=== PATIENT | female | born 1970 | race Caucasian/White ===

== ENCOUNTER 2022-06-05 19:35 | Emergency (ER) | payer MEDICAID, SELFPAY ==
[2022-06-05 19:48] VITALS: BP 121/84; PULSE 90; RESP 20; TEMP 36.8; O2SAT 98
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
--- NOTE | 2022-06-05 20:33 | PC.NURSE ---
[facility]
== END 2022-06-05 21:38 | disposition home or self-care (01) ==
PROVIDERS: Emergency Provider Nurse Practitioner Family
DX: S00.83XA Contusion of other part of head, initial encounter (principal); Y04.2XXA Assault by strike against or bumped into by another person, initial encounter
CPT/HCPCS: 70450; 70486; 72125; 99284

== ENCOUNTER 2022-06-07 12:12 | Emergency (ER) | payer MEDICAID, SELFPAY ==
[2022-06-07] VITALS (14 sets, daily range): BP systolic 102–115; BP diastolic 68–83; PULSE 69–71; RESP 16; TEMP 36.8; O2SAT 95–100
--- NOTE | 2022-06-07 12:24 | W.ED.FEMALGU ---
HPI - Female Genitourinary General: Chief complaint: Urogenital-Female Stated complaint: URINATING BLOOD Time Seen by Provider: 06/07/22 12:15 Course Vital Signs: Vital signs: Vital Signs Temperature 98.3 F 06/07/22 12:13 Pulse Rate 71 06/07/22 12:13 Respiratory Rate 16 06/07/22 12:13 Pulse Oximetry 96 06/07/22 12:13 Oxygen Delivery Me thod 06/07/22 12:13 Discharge Plan Discharge Condition: Stable Coding Level of Care Code ED Seat Cover Installer for Nilo Marshall
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
[2022-06-07 12:42] LABS: Basophils % 0.4 %; Eosinophils % 0.4 %; Hematocrit 43.7 % (37.0-47.0); Hemoglobin 14.4 g/dL (11.5-15.3); Lymphocytes # 1.2 10^3/uL (0.8-4.8); Lymphocytes % 14.7 %; Mean Corpuscular Hemoglobin 33.1 pg (28.0-34.0); Mean Corpuscular Volume 100.5 fl (81-99); Mean Platelet Volume 10.5 fL (7.4-10.4); Monocytes # 0.8 10^3/uL (0.2-0.9); Monocytes % 9.3 %; Neutrophils # 6.23 10^3/uL (1.8-7.7); Neutrophils % 74.8 %; Nucleated Red Blood Cells % 0 %; Platelet Count 232 10^3/cmm (130-400); Red Blood Count 4.35 10^6/uL (4.1-5.3); Red Cell Distribution Width 12.5 % (12.1-15.1); White Blood Count 8.3 10^3/uL (4.0-10.0)
[2022-06-07] MEDS: iohexol 350 mg/mL 500 mL Btl (per mL) IV (12:45)
[2022-06-07 12:57] LABS: Alanine Aminotransferase 26 U/L (0-33); Albumin Level 4.4 g/dL (3.5-5.2); Alkaline Phosphatase 55 U/L (35-105); Anion Gap 15.7 (5-19); Aspartate Amino Transferase 42 U/L (0-32); Blood Urea Nitrogen 9 mg/dL (6-20); Calcium 8.7 mg/dL (8.5-10.5); Carbon Dioxide 23 mmol/L (22-29); Chloride 101 mmol/L (98-107); Globulin 2.5 g/dL (1.3-4.6); Glomerular Filtration Rate 75.6 mL/min (90-130); Glucose 91 mg/dL (65-115); Osmolality Calculated 280 mOsm/kg (285-295); Potassium 3.7 mmol/L (3.5-5.1); Sodium 136 mmol/L (136-145); Total Bilirubin 0.4 mg/dL (0.15-1.2); Total Protein 6.9 g/dL (6.6-8.7)
[2022-06-07 13:19] LABS: Add Urine Microscopic? NO; Charge for UA Resulting for Rev
[2022-06-07 13:25] LABS: Glucose Urine UA Norm (Normal); Protein Urine Neg (Negative); Specific Gravity, Urine 1.005 (1.005-1.030); Urine Appearance Clear (CLEAR); Urine Color Yellow (Yellow); pH Urine 7 (5-7)
[2022-06-07 13:26] LABS: Bilirubin Urine Neg (Negative); Blood Urine Neg (Negative); Ketones Urine 1+ (Negative); Leukocyte Esterase Urine Negative (Negative); Nitrate Urine Negative (Negative); Urobilinogen Urine Norm (Negative)
== END 2022-06-07 13:45 | disposition home or self-care (01) ==
PROVIDERS: Emergency Provider Physician Assistant
DX: K62.5 Hemorrhage of anus and rectum (principal); Y04.2XXA Assault by strike against or bumped into by another person, initial encounter
CPT/HCPCS: 36415; 74177; 80053; 81003; 85025; 99285; Q9967

== ENCOUNTER → 2022-08-18 10:28 | Outpatient (BNVA) | payer OTHER, MEDICAID, SELFPAY | PROVIDERS: Referring Provider Nurse Practitioner Family; Visit Provider Anesthesiology Pain Medicine | DX: M54.16 Radiculopathy, lumbar region (principal) | CPT/HCPCS: 72110 ==

== ENCOUNTER 2022-08-22 20:19 | Emergency (ER) | payer OTHER, MEDICAID, SELFPAY ==
--- NOTE | 2022-08-22 20:21 | ED_ITS ---
HPI - Nausea/Vomiting/Diarrhea General: Chief complaint: Nausea/Vomiting/Diarrhea Stated complaint: N/V Time Seen by Provider: 08/22/22 20:21 History of Present Illness: Ms Escamilla is a 52-year-old lady with history of tobaccoism and anxiety/psych presenting to the emergency department for abdominal symptoms and cough with shortness of breath. She reports onset of symptoms earlier today with 5 episodes of nonbilious and nonbloody emesis. Abdominal pain is burning and has been intermittent. Overall intensity symptoms moderate. Course has persisted. No other specific changes in health, exacerbating, or alleviating factors identified. Onset (ago): hour(s) Description of vomiting: watery and other (Mucous) Associated nausea: Yes Associated abdominal pain: Yes Location of pain: Epigastric Severity: moderate Exacerbating factors: eating Relieving factors: none Associated symtoms: Reports cough, nausea and other Review of Systems General: Reports: 10 or more systems reviewed and unremarkable except in HPI and below GI: Reports: nausea PFSH ED PFSH: Medical History No significant past medical history Surgical History No significant past surgical history Physical Exam Const: COMMON NORMALS: alert GENERAL APPEARANCE: cooperative and well de veloped HENMT: COMMON NORMALS: normocephalic and atraumatic HEAD & SCALP: normocephalic and atraumatic Eye: COMMON NORMALS: conjunctivae normal CONJUNCTIVA: Yes conjunctivae normal SCLERA: sclerae normal Neck/C-Spine: COMMON NORMALS: supple GENERAL: Yes trachea midline Resp: COMMON NORMALS: normal respiratory effort EFFORT & INSPECTION: Yes able to speak in complete sentences AUSCULTATION: rhonchi Cardio: COMMON NORMALS: regular rate and regular rhythm RATE: regular rate RHYTHM: regular rhythm GI: COMMON NORMALS: Soft to palpation PALPATION: Yes Soft to palpation, Yes Tenderness to palpation present (GI), No Guarding due to palpation present (GI) and No Rigid due to palpation Extremity: GENERAL: Yes normal exam except as noted and No edema Neuro: COMMON NORMALS: moves all extremities SENSORIUM/ORIENTATION: Yes alert and No Orientation impaired Psych: COMMON NORMALS: mental status grossly normal and Normal thought process present THOUGHT PROCESS: Normal thought process present Course Vital Signs: Vital signs: Vital Signs Temperature 99.0 F 08/22/22 20:23 Pulse Rate 87 08/22/22 23:40 Respiratory Rate 16 08/22/22 23:40 Blood Pressure 98/65 08/22/22 23:40 Pulse Oximetry 95 08/22/22 23:40 Oxygen Delivery Me thod Room Air 08/22/22 23:02 MDM - Nausea/Vomiting/Diarrhea Medical Decision Making 52-year-old lady presenting with nausea vomiting as well as abdominal pain which is burning and coughing. Exam as above. She is nontoxic. Minimal abdominal tenderness with no evidence of acute surgical abdomen. Labs with no leukocytosis, normal hemoglobin and platelet count. Metabolic panel without acute derangement. No UTI. Viral studies negative. Chest x-ray with no lobar consolidation or pneumothorax. Patient improved with analgesia, antiemetic, fluids, treatment for exacerbation of underlying lung disease. She is comfortable foregoing CT imaging of the abdomen and I do not feel that she needs CT imaging at this time given improvement in physical exam/clinical history The results of ED evaluation were discussed with the patient including prescriptions and/or symptomatic cares (if applicable) including appropriate and responsible use, followup plan, and return precautions. The patient verbalized understanding and felt safe for discharge. Medical Records I reviewed the patient's medical records. Lab Data I reviewed the patient's lab results. 08/22/22 21:36 08/22/22 21:36 Radiology Impressions Chest X-Ray 08/22/22 20:38 IMPRESSION: No acute findings. Laboratory Results WBC 10.4 10^3/uL (4.0-10.0) H 08/22/22 21:36 RBC 4.15 10^6/uL (4.1-5.3) 08/22/22 21:36 Hgb 13.3 g/dL (11.5-15.3) 08/22/22 21:36 Hct 41.2 % (37.0-47.0) 08/22/22 21:36 MCV 99.3 fl (81-99) H 08/22/22 21:36 MCH 32.0 pg (28.0-34.0) 08/22/22 21:36 MCHC 32.3 g/dL (30.0-36.0) 08/22/22 21:36 RDW 11.9 % (12.1-15.1) L 08/22/22 21:36 Plt Count 238 10^3/cmm (130-400) 08/22/22 21:36 MPV 10.6 fL (7.4-10.4) H 08/22/22 21:36 Neut % (Auto) 90.5 % 08/22/22 21:36 Lymph % (Auto) 4.9 % 08/22/22 21:36 [place] % (Auto) 3.9 % 08/22/22 21:36 Eos % (Auto) 0.3 % 08/22/22 21:36 Baso % (Auto) 0.2 % 08/22/22 21:36 Neut # (Auto) 9.43 10^3/uL (1.8-7.7) H 08/22/22 21:36 Lymph # (Auto) 0.5 10^3/uL (0.8-4.8) L 08/22/22 21:36 [place] # (Auto) 0.4 10^3/uL (0.2-0.9) 08/22/22 21:36 Eos # (Auto) 0.0 10^3/uL (0.0-0.8) 08/22/22 21:36 Baso # (Auto) 0.0 10^3/uL (0.0-0.1) 08/22/22 21:36 Nucleated RBC % (auto) 0 % 08/22/22 21:36 Nucleated RBCs # 0.0 /100WBC 08/22/22 21:36 Sodium 140 mmol/L (136-145) 08/22/22 21:36 Potassium 3.6 mmol/L (3.5-5.1) 08/22/22 21:36 Chloride 105 mmol/L (98-107) 08/22/22 21:36 Carbon Dioxide 23 mmol/L (22-29) 08/22/22 21:36 Anion Gap 15.6 (5-19) 08/22/22 21:36 BUN 17 mg/dL (6-20) 08/22/22 21:36 Creatinine 0.7 mg/dL (0.5-0.9) 08/22/22 21:36 GFR Calculation 88.2 mL/min (90-130) L 08/22/22 21:36 Glucose 97 mg/dL (65-115) 08/22/22 21:36 Calculated Osmolality 291 mOsm/kg (285-295) 08/22/22 21:36 Calcium 8.2 mg/dL (8.5-10.5) L 08/22/22 21:36 Total Bilirubin 0.2 mg/dL (0.15-1.2) 08/22/22 21:36 AST 18 U/L (0-32) 08/22/22 21:36 ALT 15 U/L (0-33) 08/22/22 21:36 Alkaline Phosphatase 40 U/L (35-105) 08/22/22 21:36 Total Protein 6.2 g/dL (6.6-8.7) L 08/22/22 21:36 Albumin 3.8 g/dL (3.5-5.2) 08/22/22 21:36 Globulin 2.4 g/dL (1.3-4.6) 08/22/22 21:36 Lipase 24 U/L (13-60) 08/22/22 21:36 Urine Color Yellow (Yellow) 08/22/22 22:30 Urine Appearance Clear (CLEAR) 08/22/22 22:30 Urine pH 5 (5-7) 08/22/22 22:30 Ur Specific [place] 1.020 (1.005-1.030) 08/22/22 22:30 Urine Protein Neg (Negative) 08/22/22 22:30 Urine Glucose (UA) Norm (Normal) 08/22/22 22:30 Urine Ketones Negative (Negative) 08/22/22 22:30 Urine Blood Neg (Negative) 08/22/22 22:30 Urine Nitrate Negative (Negative) 08/22/22 22:30 Urine Bilirubin Neg (Negative) 08/22/22 22:30 Urine Urobilinogen Norm mg/dL (Negative) 08/22/22 22:30 Ur Leukocyte Esterase Negative (Negative) 08/22/22 22:30 Influenza Type A Ag negative (Negative) 08/22/22 22:09 Influenza Type B Ag negative (Negative) 08/22/22 22:09 SARS-CoV-2 Ag (Rapid) negative (Negative) 08/22/22 22:09 Discharge Plan Discharge Patient Disposition: Home Clinical Impression: Abdominal pain, Nausea, vomiting, and diarrhea, Acute exacerbation of COPD with asthma Condition: Stable Prescriptions: New Pepcid 40 mg tablet 40 mg PO BID 5 Days Qty: 10 0RF prednisone 50 mg tablet 50 mg PO DAILY 5 Days Qty: 5 0RF albuterol sulfate 90 mcg/actuation HFA aerosol inhaler 2 inh inhalation Q4H PRN (Reason: shortness of breath or wheezing) Qty: 8.5 0RF ondansetron 4 mg tablet,disintegrating 4 mg PO Q8H PRN (Reason: nausea and vomiting) Qty: 15 0RF amoxicillin-pot clavulanate 875-125 mg tablet 1 tab PO BID Qty: 20 0RF No Action gabapentin 300 mg capsule 300 mg PO DAILY sertraline 50 mg tablet 50 mg PO DAILY neomycin-polymyxin B-dexameth 3.5mg/mL-10,000 unit/mL-0.1 % drops,suspension 1 drp ophthalmic (eye) Q12H escitalopram oxalate 10 mg tablet 10 mg PO DAILY buspirone 10 mg tablet 10 mg PO TID meloxicam 15 mg tablet,disintegrating PO albuterol sulfate 90 mcg/actuation HFA aerosol inhaler 2 puff inhalation Q6H PRN baclofen 10 mg tablet 10 mg PO BID PRN (Reason: spasm) Qty: 60 0RF Discharge Orders: Discharge ED (Routine); Ordered 08/22/22 Ordered By: Jay Fontenot Discharge Diet: Advance as tolerated and Clear Liquid Discharge Activity: Increase activity as tolerated Patient Instructions: Gastroenteritis (ED), COPD (Chronic Obstructive Pulmonary Disease) (ED), Abdominal Pain (ED), Opioid Safety Activity Restrictions/Additional Instructions: Thank you for visiting the emergency department. You were seen and evaluated for cough, congestion, nausea vomiting and diarrhea. The exact cause your symptoms is unclear though likely multifactorial including a gastroenteritis and exacerbation of underlying lung disease which is secondary to smoking. I will prescribe steroids and antibiotics. Please also use your albuterol metered-dose inhaler 2 puffs every 4 hours for 24 hours followed by 2 puffs every 6 hours for 24 hours followed by 2 puffs every 8 hours for 24 hours and then return to the normal schedule. You may use [id number] medications such as acetaminophen and ibuprofen for pain however please do not exceed the daily recommended dosage as listed on the packaging and please keep in mind that many namebrand medications contain the s dayan active ingredients. Please avoid these medications if previously instructed to do so by another physician due to other underlying medical condition. Please make sure that you are staying hydrated. Return to the emergency department for uncontrolled symptoms or anything else that you are concerned about and feel needs emergency department evaluation. Coding Level of Care Code ED System Controller for Nilo Marshall
[2022-08-22 20:23] VITALS: BP 113/75; PULSE 80; RESP 16; TEMP 37.2; O2SAT 94; BMI 24.1
--- NOTE | 2022-08-22 20:38 | XRR_ITS ---
PROCEDURE INFORMATION: Exam: XR Chest Exam date and time: 08/22/2022 8:47 PM Age: 52 years old Clinical indication: Cough; Additional info: SOB, cough TECHNIQUE: Imaging protocol: Radiologic exam of the chest. Views: 1 view. COMPARISON: CR XR chest 1V [id number] 11/02/2015 2:51 AM FINDINGS: Lungs: Unremarkable. No consolidation. Pleural spaces: Unremarkable. No pleural effusion. No pneumothorax. Heart/Mediastinum: Unremarkable. No cardiomegaly. Bones/joints: Unremarkable. XR/XR chest 1V portable [id number] IMPRESSION: No acute findings.
[2022-08-22] MEDS: ondansetron 2 mg/ML SDV 2 mL 4 MG IVP (21:24)
[2022-08-22] MEDS: sodium chloride 0.9% 1,000 ML 999 ML IV (21:24)
[2022-08-22] MEDS: fentaNYL 50 mcg/mL INJ 2mL IVP (21:24)
[2022-08-22 21:47] LABS: Basophils % 0.2 %; Eosinophils % 0.3 %; Hematocrit 41.2 % (37.0-47.0); Hemoglobin 13.3 g/dL (11.5-15.3); Lymphocytes # 0.5 10^3/uL (0.8-4.8); Lymphocytes % 4.9 %; Mean Corpuscular HGB Conc 32.3 g/dL (30.0-36.0); Mean Corpuscular Volume 99.3 fl (81-99); Mean Platelet Volume 10.6 fL (7.4-10.4); Monocytes # 0.4 10^3/uL (0.2-0.9); Monocytes % 3.9 %; Neutrophils # 9.43 10^3/uL (1.8-7.7); Neutrophils % 90.5 %; Nucleated Red Blood Cells % 0 %; Platelet Count 238 10^3/cmm (130-400); Red Blood Count 4.15 10^6/uL (4.1-5.3); Red Cell Distribution Width 11.9 % (12.1-15.1); White Blood Count 10.4 10^3/uL (4.0-10.0)
[2022-08-22 22:07] VITALS: PULSE 81; O2SAT 95
[2022-08-22 22:11] LABS: Alanine Aminotransferase 15 U/L (0-33); Albumin Level 3.8 g/dL (3.5-5.2); Alkaline Phosphatase 40 U/L (35-105); Anion Gap 15.6 (5-19); Aspartate Amino Transferase 18 U/L (0-32); Blood Urea Nitrogen 17 mg/dL (6-20); Calcium 8.2 mg/dL (8.5-10.5); Carbon Dioxide 23 mmol/L (22-29); Chloride 105 mmol/L (98-107); Globulin 2.4 g/dL (1.3-4.6); Glomerular Filtration Rate 88.2 mL/min (90-130); Glucose 97 mg/dL (65-115); Lipase 24 U/L (13-60); Osmolality Calculated 291 mOsm/kg (285-295); Potassium 3.6 mmol/L (3.5-5.1); Sodium 140 mmol/L (136-145); Total Bilirubin 0.2 mg/dL (0.15-1.2); Total Protein 6.2 g/dL (6.6-8.7)
[2022-08-22 22:36] VITALS: BP 100/62; PULSE 85; RESP 18; O2SAT 96
[2022-08-22 22:37] VITALS: O2SAT 95
[2022-08-22 22:40] LABS: SARS Covid-2 Antigen negative (Negative)
[2022-08-22 22:41] LABS: Influenza A by IFA negative (Negative); Influenza B by IFA negative (Negative)
[2022-08-22 22:41] LABS: Add Urine Microscopic? NO; Charge for UA Resulting for Rev
[2022-08-22 22:50] LABS: Bilirubin Urine Neg (Negative); Blood Urine Neg (Negative); Glucose Urine UA Norm (Normal); Ketones Urine Negative (Negative); Leukocyte Esterase Urine Negative (Negative); Nitrate Urine Negative (Negative); Protein Urine Neg (Negative); Urine Appearance Clear (CLEAR); Urine Color Yellow (Yellow); Urobilinogen Urine Norm (Negative); pH Urine 5 (5-7)
[2022-08-22 23:02] VITALS: PULSE 77; RESP 16; O2SAT 95
[2022-08-22] MEDS: ipratropium-albuterol 3 mL Neb INHALATION (23:02)
[2022-08-22] MEDS: amoxicillin-clav 875-125 mg Tablet 1 TAB PO (23:31)
[2022-08-22 23:40] VITALS: BP 98/65; PULSE 87; RESP 16; O2SAT 95
== END 2022-08-22 23:41 | disposition home or self-care (01) ==
PROVIDERS: Emergency Provider Emergency Medicine; PCP Nurse Practitioner Family
DX: J44.1 Chronic obstructive pulmonary disease with (acute) exacerbation (principal); R11.2 Nausea with vomiting, unspecified; R10.9 Unspecified abdominal pain; R19.7 Diarrhea, unspecified; Z20.822 Contact with and (suspected) exposure to COVID-19
CPT/HCPCS: 71045; 80053; 81003; 83690; 85025; 87426; 87804; 94640; 96361; 96374; 96375; 99284; J2405; J2930; J3010; J7030

== ENCOUNTER 2023-01-16 13:11 | Emergency (ER) | payer OTHER, MEDICAID, SELFPAY ==
[2023-01-16 13:14] VITALS: BP 148/96; PULSE 66; RESP 18; TEMP 37.1; O2SAT 98; BMI 26.1
--- NOTE | 2023-01-16 13:20 | ED_ITS ---
HPI - Headache General: Chief Complaint: Headache Stated Complaint: HEADACHE Time Seen by Provider: 01/16/23 13:15 Source: patient Mode of arrival: EMS Limitations: no limitations History of Present Illness: Patient is a 52-year-old female presents to ED today with a complaint of a headache that started yesterday. She states her headache is located to her posterior scalp and radiates upward. She states she does have a history of migraine headaches but has not had a headache in several years. She states her headache today feels identical to previous migraines. She is not having any neck pain or neck stiffness. No fevers. She is not having any visual changes. She does admit to having some nausea with associated vomiting. No abdominal pain or changes in bowel movements. No respiratory complaints. She arrives via EMS with completely normal vital signs. She was given Phenergan in route and at time of my initial examination does not complain of nausea and vomiting. She states headache seems to be worse with light. It is not affected by position. Denies drug use. MD elicited complaint: headache and migraine Pertinent past history: migraines Onset (ago): day(s) Onset description: on awakening Location: occipital Severity: severe Pain scale (0-10): 7 Exacerbating factors: light Relieving factors: nothing Context: occurred at rest Associated symptoms: Reports no associated symptoms, nausea and vomiting; Deny chest pain, confusion, fever(s), lightheadedness, malaise, pre-syncope, rash or syncope Treatments prior to arrival: none Review of Systems Const: Denies: fever(s), chills, body aches, fatigue or malaise Eyes: Denies: change in vision, blurry vision, photophobia, floaters or seeing flashes ENMT: Denies: ear or mastoid pain, nasal congestion or sinus pain Card: Denies: chest pain, palpitations, lightheadedness, syncope or pre- syncope GI: Reports: nausea and vomiting; Denies: abdominal pain, diarrhea or change in bowel habits Musc: Denies: neck pain, back pain, extremity pain or joint pain Skin/Breast: Denies: rash Neuro: Reports: headache(s); Denies: numbness in extremities, weakness in extremities, sensory changes, lack of coordination, difficulty walking, frequent falls, dizziness, vertigo, confusion, behavioral changes, Slurred speech present, difficulty communicating thoughts or seizure-like activity [facility] ED PFSH: Medical History No significant past medical history Surgical History No significant past surgical history Physical Exam 2 Const: COMMON NORMALS: no acute distress, patient oriented x3, no limitations and alert GENERAL APPEARANCE: cooperative and appears older than stated age ORIENTATION/CONSCIOUSNESS: Yes awake, Yes oriented to person, Yes oriented to place and Yes oriented to time HENMT: COMMON NORMALS: normocephalic, atraumatic and TM's normal bilaterally HEAD & SCALP: normal to inspection, normocephalic and atraumatic FACE & SINUS: normal facial exam TYMPANIC MEMBRANE: TM's normal bilaterally Eye: COMMON NORMALS: Equal, round and reactive pupils present and EOMs intact bilaterally GENERAL EYE: appearance normal, both eyes and all related structures and normal light reflex PUPIL: Yes Equal, round and reactive pupils present DIRECT OPHTHALMOSCOPY: Yes normal light reflex Neck/C-Spine: COMMON NORMALS: full ROM, no lymphadenopathy, supple, no meningeal signs and no JVD GENERAL: Yes normal visual inspection, No anterior neck swelling and No submandibular swelling Resp: COMMON NORMALS: normal respiratory effort and clear to auscultation bilaterally AUSCULTATION: clear to auscultation bilaterally Cardio: COMMON NORMALS: no JVD, regular rate and regular rhythm RATE: regular rate RHYTHM: regular rhythm Extremity: COMMON NORMALS: normal to inspection GENERAL: Yes normal exam except as noted Neuro: IMELDA COMA SCALE: document GCS findings [place] coma scale eye opening: Spontaneous [place] coma scale verbal response: Orientated Imelda coma scale motor response: Obey commands [place] coma scale total score: 15 COMMON NORMALS: patient oriented x3, CN's II-XII intact bilaterally, moves all ext remities, no focal motor deficits and no sensory deficits noted SENSORIUM/ORIENTATION: Yes alert, Yes oriented to person, Yes oriented to place and Yes oriented to time MENINGEAL SIGNS: Yes no meningeal signs Skin: COMMON NORMALS: no rashes or lesions noted GENERAL SKIN EXAM: no rashes or lesions noted Course Vital Signs: Vital signs: Vital Signs Temperature 98.8 F 01/16/23 13:14 Pulse Rate 71 01/16/23 13:49 Respiratory Rate 16 01/16/23 13:49 Blood Pressure 148/110 01/16/23 13:49 Pulse Oximetry 97 01/16/23 13:49 Oxygen Delivery Me thod Room Air 01/16/23 13:49 MDM - Headache Medical Decision Making MAYBERRY down from a 11/14 to a 07/15. At this time patient is stable for DC with return precautions. I would like her to follow up with her PCP this week for re- evaluation. Discharge Plan Discharge Patient Disposition: Home Clinical Impression: Migraine Qualifiers: Migraine type: without aura Status migrainosus presence: without status migrainosus Intractability: not intractable Qualified Code(s): G43.009 - Migraine without aura, not intractable, without status migrainosus Condition: Stable Prescriptions: New ondansetron 4 mg tablet,disintegrating 4 mg PO Q8H PRN (Reason: nausea and vomiting) Qty: 14 0RF No Action gabapentin 300 mg capsule 300 mg PO DAILY sertraline 50 mg tablet 50 mg PO DAILY neomycin-polymyxin B-dexameth 3.5mg/mL-10,000 unit/mL-0.1 % drops,suspension 1 drp ophthalmic (eye) Q12H escitalopram oxalate 10 mg tablet 10 mg PO DAILY buspirone 10 mg tablet 10 mg PO TID meloxicam 15 mg tablet,disintegrating PO albuterol sulfate 90 mcg/actuation HFA aerosol inhaler 2 puff inhalation Q6H PRN baclofen 10 mg tablet 10 mg PO BID PRN (Reason: spasm) Qty: 60 0RF albuterol sulfate 90 mcg/actuation HFA aerosol inhaler 2 inh inhalation Q4H PRN (Reason: shortness of breath or wheezing) Qty: 8.5 0RF ondansetron 4 mg tablet,disintegrating 4 mg PO Q8H PRN (Reason: nausea and vomiting) Qty: 15 0RF amoxicillin-pot clavulanate 875-125 mg tablet 1 tab PO BID Qty: 20 0RF Discharge Orders: Discharge ED (Routine); Ordered 01/16/23 Ordered By: Sonia Ontiveros Referrals: Shantal Barrow FNP [Primary Care Provider] - Patient Instructions: Headache - Migraine (Adult), Migraine Headache (ED), Acute Headache (DC) Activity Restrictions/Additional Instructions: As we discussed please follow-up with your primary care provider this week for further evaluation/treatment. You may return to the emergency department for return of severe headache, neck pain/stiffness, fevers, visual changes or visual loss, facial droop, slurred speech, trouble walking, any other concerns you may have. I hope you begin to feel better soon. Coding Level of Care Code ED Check Scaler for Nilo Marshall
[2023-01-16] MEDS: ketorolac 30 mg/mL INJ IVP (13:37)
[2023-01-16] MEDS: diphenhydrAMINE 50 mg/mL SDV 1mL IVP (13:39)
[2023-01-16] MEDS: dexamethasone 10 mg/mL INJ 6 MG IV (13:41)
[2023-01-16 13:45] VITALS: BP 148/110; PULSE 81; RESP 16; O2SAT 97
[2023-01-16 13:49] VITALS: BP 148/110; PULSE 71; RESP 16; O2SAT 97
[2023-01-16 14:58] VITALS: BP 119/76; PULSE 67; RESP 16; O2SAT 97
[2023-01-16 15:00] VITALS: BP 119/76; PULSE 65; RESP 16; O2SAT 95
== END 2023-01-16 14:50 | disposition home or self-care (01) ==
PROVIDERS: Emergency Provider Physician Assistant; PCP Nurse Practitioner Family
DX: G43.009 Migraine without aura, not intractable, without status migrainosus (principal)
CPT/HCPCS: 96374; 96375; 99284; J1100; J1200; J1885

== ENCOUNTER 2023-05-05 11:38 | Emergency (ER) | payer OTHER, MEDICAID, SELFPAY ==
[2023-05-05 11:38] VITALS: BP 92/70; PULSE 91; RESP 18; TEMP 36.4; O2SAT 94; BMI 25.2
--- NOTE | 2023-05-05 11:40 | W.ED.ABDPA2 ---
HPI - Abdominal Pain General: Stated Complaint: abd pain Time Seen by Provider: 05/05/23 11:39 PFSH ED PFSH: Medical History No significant past medical history Surgical History No significant past surgical history Discharge Plan Discharge Condition: Stable Prescriptions: No Action gabapentin 300 mg capsule 300 mg PO DAILY sertraline 50 mg tablet 50 mg PO DAILY neomycin-polymyxin B-dexameth 3.5mg/mL-10,000 unit/mL-0.1 % drops,suspension 1 drp ophthalmic (eye) Q12H escitalopram oxalate 10 mg tablet 10 mg PO DAILY buspirone 10 mg tablet 10 mg PO TID meloxicam 15 mg tablet,disintegrating PO albuterol sulfate 90 mcg/actuation HFA aerosol inhaler 2 puff inhalation Q6H PRN topiramate 50 mg tablet 50 mg PO BID 30 Days Qty: 60 0RF baclofen 10 mg tablet 10 mg PO BID PRN (Reason: spasm) Qty: 60 0RF albuterol sulfate 90 mcg/actuation HFA aerosol inhaler 2 inh inhalation Q4H PRN (Reason: shortness of breath or wheezing) Qty: 8.5 0RF ondansetron 4 mg tablet,disintegrating 4 mg PO Q8H PRN (Reason: nausea and vomiting) Qty: 15 0RF amoxicillin-pot clavulanate 875-125 mg tablet 1 tab PO BID Qty: 20 0RF ondansetron 4 mg tablet,disintegrating 4 mg PO Q8H PRN (Reason: nausea and vomiting) Qty: 14 0RF Referrals: Shantal Barrow FNP [Primary Care Provider] - Coding Level of Care Code ED Production Team Manager for Nilo Marshall
--- NOTE | 2023-05-05 11:45 | ED_ITS ---
HPI - Nausea/Vomiting/Diarrhea 2 General: Chief complaint: Nausea/Vomiting/Diarrhea Stated complaint: abd pain Time Seen by Provider: 05/05/23 11:39 Source: patient Mode of arrival: ambulatory Limitations: no limitations History of Present Illness: Patient is a 53-year-old female who presents to ED today with a complaint of nausea, vomiting, and diarrhea over the past 48 hours. She states she lives at a homeless detention and some of the other residents have been ill with similar symptoms. She is having intermittent abdominal cramping. She reports approximately 8-9 episodes of nonbloody emesis over the past 24 hours. She reports approximately 3-4 episodes of nonbloody, non-mucousy diarrhea. She is not running fevers. MD elicited complaint: nausea, vomiting, diarrhea and abdominal pain Onset (ago): day(s) Description of diarrhea: watery Associated nausea: Yes Associated abdominal pain: Yes Location of pain: Diffuse Radiation: diffuse Pain consistency: intermittent Severity: mild Quality: cramping Exacerbating factors: eating Relieving factors: none Associated symtoms: Reports nausea; Denies chest pain, dizziness, dysuria, fatigue, headache(s) or malaise Review of Systems 2 Const: Denies: fever(s), chills, body aches, fatigue or malaise Card: Denies: chest pain Resp: Denies: dyspnea GI: Reports: abdominal pain, nausea and vomiting; Denies: hematemesis, diarrhea, rectal pain, hematochezia, melena or mucus in stool : Denies: flank pain, difficulty voiding, dysuria, urinary frequency, urinary urgency or urinary hesitancy Musc: Denies: neck pain, back pain, extremity pain or joint pain Skin/Breast: Denies: rash Neuro: Denies: headache(s), numbness in extremities, weakness in extremities, sensory changes or dizziness PFSH ED 2 PFSH: Medical History No significant past medical history Surgical History No significant past surgical history Physical Exam 2 Const: COMMON NORMALS: no acute distress, average body habitus, patient oriented x3, no limitations and alert GENERAL APPEARANCE: cooperative Eye: COMMON NORMALS: no scleral icterus Resp: COMMON NORMALS: normal respiratory effort and clear to auscultation bilaterally AUSCULTATION: clear to auscultation bilaterally Cardio: COMMON NORMALS: regular rate and regular rhythm RATE: regular rate RHYTHM: regular rhythm GI: COMMON NORMALS: Normal to inspection, nondistended, normoactive bowel sounds present, Soft to palpation, No hepatosplenomegaly present and no masses INSPECTION: Yes normal to inspection AUSCULTATION: Yes normoactive bowel sounds PALPATION: Yes Soft to palpation, Yes Tenderness to palpation present (GI) (mild diffusely-non surgical abdomen ), No Guarding due to palpation present (GI), No Rigid due to palpation and Yes No hepatosplenomegaly present : COMMON NORMALS: Yes no CVA tenderness BLADDER/KIDNEY EXAM: Yes no CVA tenderness Back/Pelvis: COMMON NORMALS: no CVA tenderness Neuro: COMMON NORMALS: patient oriented x3 SENSORIUM/ORIENTATION: Yes alert Course 2 Vital Signs: Vital signs: Vital Signs Temperature 97.5 F L 05/05/23 11:38 Pulse Rate 82 05/05/23 13:13 Respiratory Rate 18 05/05/23 13:13 Blood Pressure 125/95 05/05/23 13:13 Pulse Oximetry 98 05/05/23 13:13 Oxygen Delivery Me thod Room Air 05/05/23 13:13 MDM - Nausea/Vomiting/Diarrhea Medical Decision Making Patient here for nausea, vomiting, diarrhea, and abdominal cramping over the past 2 days. She is residing at a homeless detention and several other residents have been sick with similar illness. She arrives in no acute distress. Blood pressure was soft upon arrival but during re-examination she is normotensive. Patient has not had any episodes of vomiting or diarrhea while here. Her blood work overall is fairly unremarkable. Mild hypokalemia at 3.2. She was given oral supplementation for this. Patient will be sent home with antiemetics. She was given a liter of fluids here. During discharge instructions she complained of some bodyaches that were not present at the beginning of her stay. Will go ahead and collect influenza swab. She is afebrile. Return to ED precautions given. Lab Data 05/05/23 11:50 05/05/23 11:50 Laboratory Results WBC 7.15 10^3/uL (3.29-11.43) 05/05/23 11:50 RBC 4.61 10^6/uL (3.85-5.65) 05/05/23 11:50 Hgb 14.90 g/dL (11.27-16.99) 05/05/23 11:50 Hct 46.2 % (36-47) 05/05/23 11:50 MCV 100.2 fl (85-98) H 05/05/23 11:50 MCH 32.3 pg (27-33) 05/05/23 11:50 MCHC 32.3 g/dL (30-55) 05/05/23 11:50 RDW 12.7 % (12.1-15.1) 05/05/23 11:50 Plt Count 206 10^3/cmm (157-399) 05/05/23 11:50 MPV 10.0 fL (7.4-10.4) 05/05/23 11:50 Neut % (Auto) 77.1 % 05/05/23 11:50 Lymph % (Auto) 11.5 % 05/05/23 11:50 Ector % (Auto) 10.6 % 05/05/23 11:50 Eos % (Auto) 0.1 % 05/05/23 11:50 Baso % (Auto) 0.3 % 05/05/23 11:50 Neut # (Auto) 5.51 10^3/uL (1.8-7.7) 05/05/23 11:50 Lymph # (Auto) 0.8 10^3/uL (0.8-4.8) 05/05/23 11:50 Ector # (Auto) 0.8 10^3/uL (0.2-0.9) 05/05/23 11:50 Eos # (Auto) 0.0 10^3/uL (0.0-0.8) 05/05/23 11:50 Baso # (Auto) 0.0 10^3/uL (0.0-0.1) 05/05/23 11:50 Nucleated RBC % (auto) 0 % 05/05/23 11:50 Nucleated RBCs # 0.0 /100WBC 05/05/23 11:50 Sodium 137 mmol/L (136-145) 05/05/23 11:50 Potassium 3.2 mmol/L (3.5-5.1) L 05/05/23 11:50 Chloride 102 mmol/L (98-107) 05/05/23 11:50 Carbon Dioxide 24 mmol/L (22-29) 05/05/23 11:50 Anion Gap 14.2 (5-19) 05/05/23 11:50 BUN 18 mg/dL (6-20) 05/05/23 11:50 Creatinine 0.9 mg/dL (0.5-0.9) 05/05/23 11:50 GFR Calculation 65.8 mL/min (90-130) L 05/05/23 11:50 Glucose 99 mg/dL (65-115) 05/05/23 11:50 Calculated Osmolality 286 mOsm/kg (285-295) 05/05/23 11:50 Calcium 9.5 mg/dL (8.5-10.5) 05/05/23 11:50 Total Bilirubin 0.2 mg/dL (0.15-1.2) 05/05/23 11:50 AST 25 U/L (0-32) 05/05/23 11:50 ALT 18 U/L (0-33) 05/05/23 11:50 Alkaline Phosphatase 52 U/L (35-105) 05/05/23 11:50 Total Protein 7.4 g/dL (6.6-8.7) 05/05/23 11:50 Albumin 4.4 g/dL (3.5-5.2) 05/05/23 11:50 Globulin 3.0 g/dL (1.3-4.6) 05/05/23 11:50 Lipase 16 U/L (13-60) 05/05/23 11:50 Urine Color Yellow (Yellow) 05/05/23 12:01 Urine Appearance Sl hazy (CLEAR) A 05/05/23 12:01 Urine pH 5 (5-7) 05/05/23 12:01 Ur Specific [place] 1.020 (1.005-1.030) 05/05/23 12:01 Urine Protein 1+ (Negative) H 05/05/23 12:01 Urine Glucose (UA) Norm (Normal) 05/05/23 12:01 Urine Ketones 1+ (Negative) H 05/05/23 12:01 Urine Blood Neg (Negative) 05/05/23 12:01 Urine Nitrate Negative (Negative) 05/05/23 12:01 Urine Bilirubin 1+ (Negative) H 05/05/23 12:01 Urine Urobilinogen Norm mg/dL (Negative) 05/05/23 12:01 Ur Leukocyte Esterase 1+ (Negative) H 05/05/23 12:01 Urine RBC 0-4 /hpf (0-2) H 05/05/23 12:01 Urine WBC 5-10 /hpf (0-5) H 05/05/23 12:01 Ur Squamous Epith Cells 0-4 /hpf (0-5) H 05/05/23 12:01 Amorphous Sediment Not Reportable 05/05/23 12:01 Urine Bacteria 1+ /hpf (NONE) H 05/05/23 12:01 Urine Mucus 2+ /hpf 05/05/23 12:01 No radiology studies performed this visit Discharge Plan Discharge Patient Disposition: Home Clinical Impression: Gastroenteritis Condition: Stable Prescriptions: Continued ondansetron 4 mg tablet,disintegrating 4 mg PO Q8H PRN (Reason: nausea and vomiting) Qty: 14 0RF No Action sertraline 50 mg tablet 50 mg PO DAILY escitalopram oxalate 10 mg tablet 10 mg PO DAILY buspirone 10 mg tablet 10 mg PO TID albuterol sulfate 90 mcg/actuation HFA aerosol inhaler 2 puff inhalation Q6H PRN (Reason: Shortness Of Breath Or Wheezing) meloxicam 15 mg tablet 15 mg PO DAILY baclofen 20 mg tablet 20 mg PO BID PRN (Reason: Pain) topiramate 50 mg tablet 50 mg PO BID famotidine 20 mg tablet 20 mg PO DAILY Nai-D 12 Hour 60-120 mg tablet extended release 12 hr 1 tab PO BID fluticasone propionate 50 mcg/actuation spray,suspension 1 spray INTRANASAL BID Discharge Orders: Discharge ED (Routine); Ordered 05/05/23 Ordered By: Sonia Ontiveros Referrals: Shantal Barrow FNP [Primary Care Provider] - Patient Instructions: Gastroenteritis (ED), Acute Nausea and Vomiting (DC) Activity Restrictions/Additional Instructions: As we discussed continue to push fluids is much as possible. I have given you a prescription for antinausea medications to hopefully allow you to keep food and drink down. Please follow-up with your primary care provider in 2 to 3 days if symptoms do not seem to be improving. Coding Level of Care Code ED Mechanical Test Engineer for Nilo Marshall
[2023-05-05] MEDS: ondansetron 2 mg/ML SDV 2 mL 4 MG IVP (11:53)
[2023-05-05 11:54] LABS: Basophils % 0.3 %; Eosinophils % 0.1 %; Hematocrit 46.2 % (36-47); Lymphocytes # 0.8 10^3/uL (0.8-4.8); Lymphocytes % 11.5 %; Mean Corpuscular HGB Conc 32.3 g/dL (30-55); Mean Corpuscular Hemoglobin 32.3 pg (27-33); Mean Corpuscular Volume 100.2 fl (85-98); Monocytes # 0.8 10^3/uL (0.2-0.9); Monocytes % 10.6 %; Neutrophils # 5.51 10^3/uL (1.8-7.7); Neutrophils % 77.1 %; Nucleated Red Blood Cells % 0 %; Platelet Count 206 10^3/cmm (157-399); Red Blood Count 4.61 10^6/uL (3.85-5.65); Red Cell Distribution Width 12.7 % (12.1-15.1); White Blood Count 7.15 10^3/uL (3.29-11.43)
[2023-05-05 12:10] LABS: Alanine Aminotransferase 18 U/L (0-33); Albumin Level 4.4 g/dL (3.5-5.2); Alkaline Phosphatase 52 U/L (35-105); Anion Gap 14.2 (5-19); Aspartate Amino Transferase 25 U/L (0-32); Blood Urea Nitrogen 18 mg/dL (6-20); Calcium 9.5 mg/dL (8.5-10.5); Carbon Dioxide 24 mmol/L (22-29); Chloride 102 mmol/L (98-107); Glomerular Filtration Rate 65.8 mL/min (90-130); Glucose 99 mg/dL (65-115); Lipase 16 U/L (13-60); Osmolality Calculated 286 mOsm/kg (285-295); Potassium 3.2 mmol/L (3.5-5.1); Sodium 137 mmol/L (136-145); Total Bilirubin 0.2 mg/dL (0.15-1.2); Total Protein 7.4 g/dL (6.6-8.7)
[2023-05-05] MEDS: potassium chloride ER 20 mEq Tablet 40 MEQ PO (12:43)
[2023-05-05 12:45] LABS: Glucose Urine UA Norm (Normal); Ketones Urine 1+ (Negative); Protein Urine 1+ (Negative); Urine Appearance SL Hazy (CLEAR); Urine Color Yellow (Yellow); pH Urine 5 (5-7)
[2023-05-05 12:46] LABS: Add Urine Microscopic? YES; Bacteria Urine 1+ /hpf; Bilirubin Urine 1+ (Negative); Blood Urine Neg (Negative); Leukocyte Esterase Urine 1+ (Negative); Mucus Urine 2+ /hpf; Nitrate Urine Negative (Negative); RBC Urine 0-4 /hpf (0-2); Squamous Epithelial Cell Urine 0-4 /hpf (0-5); Urobilinogen Urine Norm (Negative)
[2023-05-05] MEDS: dicyclomine 10 mg Capsule PO (12:59)
[2023-05-05 13:01] VITALS: PULSE 94; RESP 16; O2SAT 96
[2023-05-05 13:13] VITALS: BP 125/95; PULSE 82; RESP 18; O2SAT 98
[2023-05-05 13:26] VITALS: BP 120/89; PULSE 86; RESP 16; O2SAT 97
[2023-05-05 13:44] LABS: Influenza A by IFA negative (Negative); Influenza B by IFA negative (Negative)
== END 2023-05-05 13:30 | disposition home or self-care (01) ==
PROVIDERS: Emergency Provider Physician Assistant; PCP Nurse Practitioner Family
DX: K52.9 Noninfective gastroenteritis and colitis, unspecified (principal)
CPT/HCPCS: 36415; 80053; 81001; 83690; 85025; 87804; 96374; 99284; J2405

== ENCOUNTER 2023-05-15 13:42 | Emergency (ER) | payer OTHER, MEDICAID, SELFPAY ==
--- NOTE | 2023-05-15 13:45 | USCV_ITS ---
Mamie Escamilla Age: 53 Gender: F : 1970 Exam Date: 05/15/2023 14:04 Ordering Phys: Johanna Da Silva MD Technologist: CARY Exam Location: [facility] [place] Indication: PAIN. C/O CRAMPING HISTORY: Lower extremity pain. PROCEDURES: Venous duplex imaging was performed in only the right lower extremity. The following venous structures were evaluated: common femoral vein, profunda vein, proximal portion of the greater saphenous vein, superficial femoral vein, and the popliteal vein. In addition, the posterior tibial and peroneal trunk were evaluated. Serial compression, augmentation maneuvers, and spectral Doppler flow evaluation were performed. FINDINGS: No evidence of DVT seen in any vessel visualized at this time. Vessels appear to have reflux from prof to popliteal CONCLUSIONS No evidence of right lower extremity DVT. Rick Lam MD (Electronically Signed) Final Date: 15 May 2023 14:33 S
[2023-05-15 14:38] VITALS: BP 102/70; PULSE 77; RESP 16; TEMP 36.8; O2SAT 95; BMI 24.9
[2023-05-15 15:20] VITALS: BP 104/71; PULSE 80; RESP 16; O2SAT 97
--- NOTE | 2023-05-15 15:25 | ED_ITS ---
HPI - Extremity Problem 2 General: Chief complaint: Extremity Injury, Lower Stated complaint: swollen rt calf Time Seen by Provider: 05/15/23 15:05 Source: patient Mode of arrival: ambulatory Limitations: no limitations History of Present Illness: Patient is a 53-year-old female who presents to ED today with a complaint of right calf pain, swelling, and lesion. She states she initially noticed bruising and a small lesion later on . She states symptoms have progressed since then. She is not running any fevers. She has not noticed any streaking up her leg. She noticed a blister formation to the lesion today. Denies risk factors for DVT. MD Complaint: extremity pain and extremity swelling Onset (ago): day(s) Pain Consistency: constant Location: right and lower extremity Quality: burning Radiation: none Relieving factors: nothing Exacerbating factors: weight bearing Associated symptoms: Reports no associated symptoms; Deny chest pain or fever(s) Review of Systems 2 Const: Denies: fever(s), chills, body aches, fatigue or malaise Card: Denies: chest pain Resp: Denies: dyspnea Musc: Reports: extremity pain and extremity swelling; Denies: neck pain, back pain, joint pain, joint swelling, joint redness, joint warmth, joint stiffness or limited range of motion Skin/Breast: Reports: new lesions Neuro: Denies: headache(s), numbness in extremities, weakness in extremities or sensory changes PFSH ED 2 PFSH: Medical History No significant past medical history Surgical History No significant past surgical history Physical Exam 2 Const: COMMON NORMALS: no acute distress, patient oriented x3, no limitations, alert and well nourished Resp: COMMON NORMALS: normal respiratory effort and clear to auscultation bilaterally AUSCULTATION: clear to auscultation bilaterally Cardio: COMMON NORMALS: regular rate and regular rhythm RATE: regular rate RHYTHM: regular rhythm Back/Pelvis: COMMON NORMALS: thoracic and lumbar spine normal to inspection Extremity: COMMON NORMALS: full ROM, capillary refill normal, no joint enlargement and no pedal edema GENERAL: Yes normal exam except as noted EXTREMITY IMAGE (BACK): 1. erythematous area with central quarter sized bulla formation most likely representing a bite of some sort; calf is swollen; no lymphangitic streaking; no underlying fluctuance; calf compartment is still soft; can flex/extend ankle joint without eliciting calf pain Neuro: COMMON NORMALS: patient oriented x3, moves all extremities, no focal motor deficits and no sensory deficits noted SENSORIUM/ORIENTATION: Yes alert Course 2 Vital Signs: Vital signs: Vital Signs Temperature 98.3 F 05/15/23 14:38 Pulse Rate 80 05/15/23 15:20 Respiratory Rate 16 05/15/23 15:20 Blood Pressure 104/71 05/15/23 15:20 Pulse Oximetry 97 05/15/23 15:20 Oxygen Delivery Me thod Room Air 05/15/23 15:20 MDM - Extremity (Nontraumatic) Medical Decision Making US ordered from triage showing no DVT. Clinically this appears to be a bite of some sort. She will be placed on Bactrim. Return to ED precautions given. She is requesting something for pain which I feel is reasonable. Medical Records I reviewed the patient's medical records. Lab Data I reviewed the patient's lab results. All radiology interpretation(s) finalized by discharge Discharge Plan Discharge Patient Disposition: Home Clinical Impression: Insect bite of right lower leg with infection Qualifiers: Encounter type: initial encounter Qualified Code(s): S80.861A - Insect bite (nonvenomous), right lower leg, initial encounter Condition: Stable Prescriptions: New sulfamethoxazole-trimethoprim [Bactrim DS] 800-160 mg tablet 1 tab PO BID 7 Days Qty: 14 0RF tramadol 50 mg tablet 50 mg PO Q6H PRN (Reason: pain) Qty: 10 0RF No Action sertraline 50 mg tablet 50 mg PO DAILY escitalopram oxalate 10 mg tablet 10 mg PO DAILY buspirone 10 mg tablet 10 mg PO TID albuterol sulfate 90 mcg/actuation HFA aerosol inhaler 2 puff inhalation Q6H PRN (Reason: Shortness Of Breath Or Wheezing) meloxicam 15 mg tablet 15 mg PO DAILY baclofen 20 mg tablet 20 mg PO BID PRN (Reason: Pain) topiramate 50 mg tablet 50 mg PO BID famotidine 20 mg tablet 20 mg PO DAILY Nai-D 12 Hour 60-120 mg tablet extended release 12 hr 1 tab PO BID fluticasone propionate 50 mcg/actuation spray,suspension 1 spray INTRANASAL BID ondansetron 4 mg tablet,disintegrating 4 mg PO Q8H PRN (Reason: nausea and vomiting) Qty: 14 0RF Discharge Orders: Discharge ED (Routine); Ordered 05/15/23 Ordered By: Sonia Ontiveros Referrals: Shantal Barrow FNP [Primary Care Provider] - Patient Instructions: Opioid Safety, Pain Management Activity Restrictions/Additional Instructions: As we discussed fill your antibiotics and start them immediately. You may ice and elevate the extremity to help with swelling. Do not apply ice directly to the skin/bite. You need to return to the emergency department for worsening pain, swelling, red streaking up your leg, fevers, generally feeling worse or unwell, or any other concerns you may have. I hope you begin to feel better soon. Coding Level of Care Code ED Tattooer for Nilo Marshall
[2023-05-15 15:46] VITALS: BP 109/77; PULSE 80; RESP 16; O2SAT 96
== END 2023-05-15 15:49 | disposition home or self-care (01) ==
PROVIDERS: Emergency Provider Physician Assistant; PCP Nurse Practitioner Family
DX: S80.861A Insect bite (nonvenomous), right lower leg, initial encounter (principal); W57.XXXA Bitten or stung by nonvenomous insect and other nonvenomous arthropods, initial encounter
CPT/HCPCS: 93971; 99284

== ENCOUNTER 2023-05-28 19:04 | Emergency (ER) | payer OTHER, MEDICAID, SELFPAY ==
[2023-05-28 19:05] VITALS: BP 133/98; PULSE 88; RESP 18; TEMP 36.4; O2SAT 100; BMI 26.6
--- NOTE | 2023-05-28 19:14 | ED_ITS ---
HPI - Skin/Abscess/Foreign Bdy General: Chief complaint: Skin/Abscess/Foreign Body Stated complaint: LEG PAIN Time Seen by Provider: 05/28/23 19:08 Source: patient and EMS Mode of arrival: EMS Limitations: no limitations History of Present Illness: 53-year-old female has had a chronic wou nd to her right calf she states he is scheduled to see wound care on Monday she states she is ran out of her a ntibiotics and pain meds and having pain to rates pain a 5 out of 10 she denies any fevers denies any worsening proving factors. Associated symptoms: Deny chills, fever(s), nausea or vomiting Review of Systems Const: Denies: fever(s) or chills ENMT: Denies: throat pain or dental pain Card: Denies: chest pain Resp: Denies: dyspnea GI: Denies: abdominal pain, nausea, vomiting or diarrhea Musc: Reports: extremity pain; Denies: neck pain or back pain Skin/Breast: Reports: erythema Neuro: Denies: headache(s) PFSH ED PFSH: Medical History No significant past medical history Surgical History No significant past surgical history Course Vital Signs: Vital signs: Vital Signs Temperature 97.6 F 05/28/23 19:05 Pulse Rate 88 05/28/23 19:05 Respiratory Rate 18 05/28/23 19:05 Blood Pressure 133/98 05/28/23 19:05 Pulse Oximetry 100 05/28/23 19:05 Oxygen Delivery Me thod Room Air 05/28/23 19:05 MDM - Skin/Abscess/Foreign Bdy Medicial Decision Making Patient presents here with right leg wound to her calf no abscess mild cellulitis she is ran out of her antibiotics and pain meds we will prescribe her Bactrim and Naprosyn she has follow-up with wound care in [place] on Monday she is to follow-up as scheduled Medical Records I reviewed the patient's medical records. No radiology studies performed this visit Discharge Plan Discharge Patient Disposition: Home Clinical Impression: Leg wound, right Condition: Stable Prescriptions: New Bactrim DS 800-160 mg tablet 1 tab PO BID 10 Days Qty: 20 0RF Naprosyn 500 mg tablet 500 mg PO BID PRN (Reason: pain) Qty: 20 0RF No Action sertraline 50 mg tablet 50 mg PO DAILY escitalopram oxalate 10 mg tablet 10 mg PO DAILY buspirone 10 mg tablet 10 mg PO TID albuterol sulfate 90 mcg/actuation HFA aerosol inhaler 2 puff inhalation Q6H PRN (Reason: Shortness Of Breath Or Wheezing) meloxicam 15 mg tablet 15 mg PO DAILY baclofen 20 mg tablet 20 mg PO BID PRN (Reason: Pain) topiramate 50 mg tablet 50 mg PO BID famotidine 20 mg tablet 20 mg PO DAILY Nai-D 12 Hour 60-120 mg tablet extended release 12 hr 1 tab PO BID fluticasone propionate 50 mcg/actuation spray,suspension 1 spray INTRANASAL BID ondansetron 4 mg tablet,disintegrating 4 mg PO Q8H PRN (Reason: nausea and vomiting) Qty: 14 0RF tramadol 50 mg tablet 50 mg PO Q6H PRN (Reason: pain) Qty: 10 0RF Discharge Orders: Discharge ED (Routine); Ordered 05/28/23 Ordered By: Johanna Da Silva Referrals: Shantal Barrow FNP [Primary Care Provider] - Discharge Diet: Advance as tolerated Discharge Activity: Resume usual activity Patient Instructions: Wound Care (General) Coding Level of Care Code ED Global Mobility Specialist for Nilo Marshall
[2023-05-28] MEDS: HYDROcodone-acetaminophen 5-325 mg Tablet 1 TAB PO (19:25)
[2023-05-28] MEDS: sulfamethoxazole-trimeth DS 160-800 mg Tablet 1 TAB PO (19:25)
[2023-05-28 19:42] VITALS: BP 109/56; PULSE 17; RESP 85; O2SAT 98
== END 2023-05-28 19:40 | disposition home or self-care (01) ==
PROVIDERS: Emergency Provider Emergency Medicine; PCP Nurse Practitioner Family
DX: L03.115 Cellulitis of right lower limb (principal)
CPT/HCPCS: 99283

== ENCOUNTER 2023-06-04 14:52 | Emergency (ER) | payer OTHER, MEDICAID, SELFPAY ==
[2023-06-04 15:00] VITALS: BP 104/77; PULSE 76; TEMP 36.6; O2SAT 96; BMI 26.6
--- NOTE | 2023-06-04 15:44 | W.ED.SKABFB ---
HPI - Skin/Abscess/Foreign Bdy General: Chief complaint: Skin/Abscess/Foreign Body Stated complaint: CYST ON LEG Time Seen by Provider: 06/04/23 15:00 History of Present Illness: Patient presents to the ER for complaints of right calf pain secondary to a abscess or cyst. Patient is currently on antibiotics from her PCP. Patient says she is only taking meloxicam for pain. She says it just is not cutting it. She states she had been seen in [place] by her PCP for this been sent to [place] seen by Ortho but they would not touch it because it was in the muscle and therefore she was sent back here for general surgeon to take care of but she has appointment with Dr. Lowe in 2 days. Patient is just here for pain medicine. Review of Systems General: Reports: 10 or more systems reviewed and unremarkable except in HPI and below PFSH ED PFSH: Medical History No significant past medical history Surgical History No significant past surgical history Physical Exam Const: COMMON NORMALS: no acute distress, average body habitus, patient oriented x3, no limitations, healthy appearing, alert and well nourished HENMT: COMMON NORMALS: normocephalic, atraumatic, hearing grossly normal bilaterally, external ears normal, EAC's normal, Normal external nose present, moist oral mucous membranes and oropharynx normal HEAD & SCALP: normocephalic and atraumatic NOSE: Normal external nose present EXTERNAL EAR: Yes external ears normal EXTERNAL AUDITORY CANAL: EAC's normal Neck/C-Spine: COMMON NORMALS: no JVD Chest: COMMONS NORMALS: normal inspection of the chest and normal palpation of entire chest wall Resp: COMMON NORMALS: normal respiratory effort, No retractions, No use of accessory muscles and clear to auscultation bilaterally AUSCULTATION: clear to auscultation bilaterally Cardio: COMMON NORMALS: no JVD, regular rate, regular rhythm, S1 normal heart sound present, S2 normal heart sound present, No gallops present (Cardio), No clicks present (Cardio) and No murmurs present (Cardio) RATE: regular rate RHYTHM: regular rhythm HEART SOUNDS: S1 normal heart sound present and S2 normal heart sound present Extremity: NARRATIVE EXTREMITY EXAM: Right knee mildly swollen, right calf no swelling erythema streaking drainage Neuro: COMMON NORMALS: patient oriented x3 SENSORIUM/ORIENTATION: Yes alert Course Vital Signs: Vital signs: Vital Signs Temperature 97.9 F 06/04/23 15:00 Pulse Rate 76 06/04/23 15:00 Blood Pressure 104/77 06/04/23 15:00 Pulse Oximetry 96 06/04/23 15:00 Oxygen Delivery Me thod Room Air 06/04/23 15:00 MDM - Skin/Abscess/Foreign Bdy Medicial Decision Making Patient was urine drug screen that was negative for opiates. But positive for benzos. Per our list patient may not be on benzos. We will provide the patient a prescription for tramadol 50 mg 1 p.o. 3 times daily x 2 days just enough to make her appointment with Dr. Lowe. We will give the patient 2 tablets to go home on. Differential Diagnosis Likely abscess of skin or subcutaneous tissue Medical Records I reviewed the patient's medical records. Lab Data I reviewed the patient's lab results. Laboratory Results Urine Opiates Screen Negative ng/mL (Negative) 06/04/23 15:46 Ur Barbiturates Screen Negative ng/mL (Negative) 06/04/23 15:46 Ur Phencyclidine Scrn Negative ng/mL (Negative) 06/04/23 15:46 Ur Amphetamines Screen Negative ng/mL (Negative) 06/04/23 15:46 U Benzodiazepines Scrn Positive ng/mL (Negative) H 06/04/23 15:46 Urine Cocaine Screen Negative ng/mL (Negative) 06/04/23 15:46 U Marijuana (THC) Screen Negative ng/mL (Negative) 06/04/23 15:46 All radiology interpretation(s) finalized by discharge Discharge Plan Discharge Patient Disposition: Home Clinical Impression: Abscess of skin or subcutaneous tissue Qualifiers: Site of cutaneous abscess: extremity Site of cutaneous abscess of extremity: lower extremity Laterality: right Qualified Code(s): L02.415 - Cutaneous abscess of right lower limb Condition: Stable Prescriptions: New tramadol 50 mg tablet 50 mg PO Q8H PRN (Reason: pain) Qty: 6 0RF No Action escitalopram oxalate 10 mg tablet 10 mg PO DAILY albuterol sulfate 90 mcg/actuation HFA aerosol inhaler 2 puff inhalation Q6H PRN (Reason: Shortness Of Breath Or Wheezing) sulfamethoxazole-trimethoprim [Bactrim DS] 800-160 mg tablet 1 tab PO BID 10 Days Qty: 20 0RF naproxen [Naprosyn] 500 mg tablet 500 mg PO BID PRN (Reason: pain) Qty: 20 0RF meloxicam 15 mg tablet 15 mg PO DAILY baclofen 20 mg tablet 20 mg PO BID PRN (Reason: Pain) famotidine 20 mg tablet 20 mg PO DAILY fexofenadine-pseudoephedrine [Nai-D 12 Hour] 60-120 mg tablet extended release 12 hr 1 tab PO BID fluticasone propionate 50 mcg/actuation spray,suspension 1 spray INTRANASAL BID ondansetron 4 mg tablet,disintegrating 4 mg PO Q8H PRN (Reason: nausea and vomiting) Qty: 14 0RF buspirone 15 mg tablet 15 mg PO TID PRN (Reason: Anxiety) Discharge Orders: Discharge ED (Routine); Ordered 06/04/23 Ordered By: Thiago Nunez Referrals: Shantal Barrow FNP [Primary Care Provider] - 1 week Patient Instructions: Abscess (ED), Opioid Safety, Pain Management Activity Restrictions/Additional Instructions: Take all medicine as directed. Please continue your antibiotics that is been previously prescribed. Please keep your appointment with Dr. Lowe general surgeon on Monday at 3 PM as previously scheduled. Coding Level of Care Code ED Meat Market Manager for Nilo Marshall
[2023-06-04] MEDS: ketorolac 60 mg/2 mL INJ IM (15:51)
--- NOTE | 2023-06-04 15:52 | PC.PHAR ---
PT STATES HAS STOPPED ALL MEDS EXCEPT NAPROXEN 500 AND SEPTRA DS FOR 2 DAYS. 06/04/23 PT WOULD LIKE TO HAVE MORE ZOFRAN 4 MG.
[2023-06-04 16:05] LABS: Amphetamines Screen Urine Negative (Negative); Barbiturates Screen Urine Negative (Negative); Benzodiazepines Screen Urine Positive (Negative); Cocaine Screen Urine Negative (Negative); Opiate Screen Urine Negative (Negative); PCP Screen Urine Negative (Negative); THC Screen Urine Negative (Negative)
[2023-06-04] MEDS: TRAMadol 50 mg Tablet PO ×2 (16:53)
== END 2023-06-04 17:02 | disposition home or self-care (01) ==
PROVIDERS: Emergency Provider Emergency Medicine; PCP Nurse Practitioner Family
DX: L02.415 Cutaneous abscess of right lower limb (principal)
CPT/HCPCS: 80306; 96372; 99284; J1885

== ENCOUNTER → 2023-06-28 10:25 | Outpatient (BNVA) | payer OTHER, MEDICAID, SELFPAY | PROVIDERS: PCP Nurse Practitioner Family; Referring Provider Nurse Practitioner Family; Visit Provider Nurse Practitioner | DX: M17.11 Unilateral primary osteoarthritis, right knee; M71.21 Synovial cyst of popliteal space [Baker], right knee | CPT/HCPCS: 73560; 73565 ==

== ENCOUNTER 2024-02-28 11:48 | Emergency (ER) | payer MEDICAID, SELFPAY ==
[2024-02-28 12:32] VITALS: BP 113/80; PULSE 70; RESP 16; TEMP 36.8; O2SAT 100
[2024-02-28 14:00] LABS: Alanine Aminotransferase 10 U/L (0-33); Albumin Level 4.9 g/dL (3.5-5.2); Alkaline Phosphatase 57 U/L (35-105); Aspartate Amino Transferase 21 U/L (0-32); Blood Urea Nitrogen 7 mg/dL (6-20); Calcium 9.4 mg/dL (8.5-10.5); Carbon Dioxide 22 mmol/L (22-29); Chloride 101 mmol/L (98-107); Glomerular Filtration Rate 87.9 mL/min (90-130); Glucose 86 mg/dL (65-115); Lipase 19 U/L (13-60); Osmolality Calculated 281 mOsm/kg (285-295); Sodium 137 mmol/L (136-145); Total Bilirubin 0.4 mg/dL (0.15-1.2); Total Protein 7.9 g/dL (6.6-8.7)
[2024-02-28 14:02] LABS: Anion Gap 17.8 (5-19); Potassium 3.8 mmol/L (3.5-5.1)
[2024-02-28 14:16] LABS: Basophils % 0.4 %; Eosinophils % 0.2 %; Hematocrit 46.2 % (36-47); Lymphocytes # 1.2 10^3/uL (0.8-4.8); Lymphocytes % 12.6 %; Mean Corpuscular Hemoglobin 34.2 pg (27-33); Mean Corpuscular Volume 100.7 fl (85-98); Mean Platelet Volume 10.8 fL (7.4-10.4); Monocytes # 0.6 10^3/uL (0.2-0.9); Monocytes % 6.5 %; Neutrophils # 7.77 10^3/uL (1.8-7.7); Neutrophils % 79.4 %; Nucleated Red Blood Cells % 0 %; Platelet Count 248 10^3/cmm (157-399); Red Blood Count 4.59 10^6/uL (3.85-5.65); Red Cell Distribution Width 11.7 % (12.1-15.1); White Blood Count 9.79 10^3/uL (3.29-11.43)
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
[2024-02-28 14:53] VITALS: BP 121/82; PULSE 72; RESP 16; O2SAT 98
--- NOTE | 2024-02-28 14:57 | CTR_ITS ---
PROCEDURE INFORMATION: Exam: CT Abdomen And Pelvis With Contrast Exam date and time: 02/28/2024 4:56 PM Age: 53 years old Clinical indication: Abdominal pain; Additional info: L abdominal pain, reports hematochezia TECHNIQUE: Imaging protocol: Computed tomography of the abdomen and pelvis with contrast. Radiation optimization: All CT scans at this facility use at least one of these dose optimization techniques: automated exposure control; mA and/or kV adjustment per patient size (includes targeted exams where dose is matched to clinical indication); or iterative reconstruction. Contrast material: OMNI 350; Contrast volume: 100 ml; Contrast route: INTRAVENOUS (IV); COMPARISON: CT abdomen pelvis w con* [id number] 06/07/2022 12:41 PM RADIATION DOSE METRICS: Total DLP (mGy-cm): 397.13 FINDINGS: Liver: Normal. No mass. Punctate hepatic hypodensity remains too small to characterize but likely represents a cyst. Gallbladder and biliary ducts: Normal. No calcified stones. No ductal dilation. Pancreas: Normal. No ductal dilation. Spleen: Normal. No splenomegaly. Adrenal glands: Normal. No mass. Kidneys and ureters: Normal. No hydronephrosis. Stomach and bowel: Diffuse mural thickening throughout the majority of the transverse and proximal descending colon with areas of pericolonic fat stranding. Numerous diverticula are also seen throughout the colon. No evidence of bowel obstruction. Appendix: No evidence of appendicitis. Intraperitoneal space: Unremarkable. No free air. No significant fluid collection. Vasculature: Moderate atherosclerotic aortoiliac calcifications. No aortic aneurysm. Lymph nodes: Unremarkable. No enlarged lymph nodes. Urinary bladder: Unremarkable as visualized. Reproductive: Status post hysterectomy. Bones/joints: Worsening advanced degenerative changes of the left hip, including subchondral cystic changes within the acetabulum. Interval development/worsening of subcortical cystic changes in the femoral head. Multilevel degenerative changes of the visualized spine. Soft tissues: Unremarkable. CT/CT abdomen pelvis w con* [id number] IMPRESSION: 1. Findings consistent with infectious/inflammatory colitis involving the transverse and proximal descending colon. An element of acute diverticulitis is not excluded as several diverticula are seen in the vicinity. 2. Interval worsening of advanced degenerative changes of the left hip, including subcortical cystic changes in the femoral head which may be related to degenerative change versus osteonecrosis. Consider orthopedic consultation.
--- NOTE | 2024-02-28 14:57 | XR_ITS ---
WS: [id number] Exam: XR chest 1V portable [id number] Date/Time of Exam: 02/28/2024 3:00 PM Reason For Exam: L lower rib/chest pain Comparison 08/22/2022. Lungs are hyperinflated and clear. Normal cardiomediastinal silhouette. No pleural effusions. Bony st ructures are intact. XR/XR chest 1V portable [id number] IMPRESSION: 1. Pulmonary hyperinflation. No acute process noted.
[2024-02-28 15:05] LABS: Bilirubin Urine Negative (Negative); Blood Urine Negative (Negative); Glucose Urine UA Negative (Normal); Ketones Urine Negative (Negative); Leukocyte Esterase Urine Negative (Negative); Nitrate Urine Negative (Negative); Protein Urine Negative (Negative); Specific Gravity, Urine 1.005 (1.005-1.030); Urine Appearance Clear (CLEAR); Urine Color Yellow (Yellow); Urobilinogen Urine 0.2 mg/dL (Negative); pH Urine 5.5 (5-7)
[2024-02-28 15:08] LABS: Add Urine Microscopic? YES; Bacteria Urine None Seen /hpf; Hyaline Casts Urine 0-4 /lpf; RBC Urine 0-2 /hpf (0-2); Squamous Epithelial Cell Urine 0-5 /hpf (0-5); WBC Urine 0-5 /hpf (0-5)
--- NOTE | 2024-02-28 15:16 | PC.PHAR ---
patient stated she stopped the quetiapine due to it giving her trouble breathing in her sleep
[2024-02-28] MEDS: iohexol 350 mg/mL 500 mL Btl (per mL) IV (17:10)
[2024-02-28 17:19] VITALS: BP 124/79; PULSE 69; RESP 18; O2SAT 98
[2024-02-28 18:17] LABS: C.Diff PCR (Lab) NEGATIVE (Negative)
[2024-02-28] MEDS: ciprofloxacin 500 mg Tablet PO (18:18)
[2024-02-28] MEDS: metroNIDAZOLE 500 MG Tablet PO (18:18)
[2024-02-28 18:35] VITALS: BP 124/79; PULSE 68; RESP 16; O2SAT 94
--- NOTE | 2024-03-01 01:55 | DCPLANNER ---
Message sent to Clinics to establish PCP
== END 2024-02-28 18:22 | disposition home or self-care (01) ==
PROVIDERS: Emergency Provider Physician Assistant; PCP Nurse Practitioner Family
DX: K57.92 Diverticulitis of intestine, part unspecified, without perforation or abscess without bleeding (principal); F17.210 Nicotine dependence, cigarettes, uncomplicated
CPT/HCPCS: 36415; 71045; 74177; 80053; 81001; 82274; 83630; 83690; 85025; 87045; 87177; 87209; 87427; 87449; 87493; 99285

== ENCOUNTER → 2024-04-23 09:30 | Outpatient (BNVA) | payer MEDICAID, SELFPAY | PROVIDERS: PCP Nurse Practitioner Family; Visit Provider Family Medicine | DX: K57.92 Diverticulitis of intestine, part unspecified, without perforation or abscess without bleeding (principal); E55.9 Vitamin D deficiency, unspecified; F10.10 Alcohol abuse, uncomplicated; F41.1 Generalized anxiety disorder; F33.2 Major depressive disorder, recurrent severe without psychotic features; H93.13 Tinnitus, bilateral; R42 Dizziness and giddiness; H43.393 Other vitreous opacities, bilateral; R79.89 Other specified abnormal findings of blood chemistry; Z79.899 Other long term (current) drug therapy | CPT/HCPCS: 80053; 80061; 82306; 82533; 82607; 82728; 82746; 83540; 83735; 84439; 84443; 85025; 85651; 86140; 86431 ==

== ENCOUNTER → 2024-04-24 08:40 | Outpatient (BNVA) | payer MEDICAID, SELFPAY | PROVIDERS: PCP Nurse Practitioner Family; Visit Provider Family Medicine | DX: K57.92 Diverticulitis of intestine, part unspecified, without perforation or abscess without bleeding (principal); E55.9 Vitamin D deficiency, unspecified; F10.10 Alcohol abuse, uncomplicated; F41.1 Generalized anxiety disorder; F33.2 Major depressive disorder, recurrent severe without psychotic features; H93.13 Tinnitus, bilateral; R42 Dizziness and giddiness; H43.393 Other vitreous opacities, bilateral; R79.89 Other specified abnormal findings of blood chemistry | CPT/HCPCS: 86038 ==

== ENCOUNTER → 2024-07-09 09:07 | Outpatient (BNVA) | payer OTHER, SELFPAY ==
[2024-04-29 14:41] VITALS: BP 97/66; BMI 23.3
== END ==
PROVIDERS: PCP Family Medicine; Visit Provider Family Medicine
DX: M54.2 Cervicalgia (principal); M54.9 Dorsalgia, unspecified; G89.29 Other chronic pain; R79.89 Other specified abnormal findings of blood chemistry
CPT/HCPCS: 80048; 82306; 85651; 86038; 86140; 86376; 86431

== ENCOUNTER → 2024-08-05 13:33 | Outpatient (BNVA) | payer OTHER, MEDICAID, SELFPAY ==
[2024-04-29 14:41] VITALS: BP 97/66; BMI 23.3
== END ==
PROVIDERS: PCP Family Medicine; Visit Provider Nurse Practitioner Family
DX: R10.9 Unspecified abdominal pain (principal)
CPT/HCPCS: 81000; 87086

== ENCOUNTER → 2024-12-23 15:20 | Outpatient (BNVA) | payer MEDICAID, SELFPAY ==
[2024-04-29 14:41] VITALS: BP 97/66; BMI 23.3
== END ==
PROVIDERS: PCP Nurse Practitioner Family; Visit Provider Nurse Practitioner
DX: M17.11 Unilateral primary osteoarthritis, right knee (principal); M71.21 Synovial cyst of popliteal space [Baker], right knee
CPT/HCPCS: 73560; 73565